=== PATIENT | male | born 1985 | race Caucasian/White ===

== ENCOUNTER → 2018-08-30 | Outpatient (REF) | LOC: M SMT 12:57 | DX: Z02.71 Encounter for disability determination (principal) ==

== ENCOUNTER → 2018-09-21 | Outpatient (REF) | payer SELFPAY ==
[2018-09-21 15:04] LABS: CPK CREATINE PHOSPHOKINASE 177 U/L (39-308); FOLATE 10.8 NG/ML; FREE T4 1.47 NG/DL (0.76-1.46); RHEUMATOID FACTOR QUANT < 10.0 IU/ML (<15.0); VITAMIN B12 LEVEL 931 PG/ML
[2018-09-21 16:37] LABS: HEMOGLOBIN A1c 5.3 %
[2018-09-28 00:07] LABS: ALDOLASE 5.1 U/L (3.3-10.3); ANTINUCLEAR ANTIBODIES DIRECT Negative (Negative); Lyme Disease IgG/IgM Antibodie <0.91 ISR (0.00-0.90); Lyme Disease IgM Ab Quantitati <0.80 index (0.00-0.79); VITAMIN B1 LEVEL WHOLE BLOOD 113.6 nmol/L (66.5-200.0); VITAMIN B6,PYRIDOXAL PHOSPHATE 4.3 ug/L (5.3-46.7); VITAMIN E(ALPHA TOCOPHEROL) 7.6 mg/L (5.9-19.4); VITAMIN E(GAMMA TOCOPHEROL) 0.9 mg/L (0.7-4.9)
== END ==
LOC: M LABNEURO 10:42
PROVIDERS: ATTEND Psychiatry & Neurology Neurology
DX: R53.1 Weakness (principal); Z11.9 Encounter for screening for infectious and parasitic diseases, unspecified; E07.9 Disorder of thyroid, unspecified